=== PATIENT | female | born 1990 | race African-American/Black ===

== ENCOUNTER 2020-07-13 06:57 | Outpatient (NON) | payer BC, SELFPAY ==
[2020-07-14 18:06] LABS: SARS-CoV-2 RNA PCR Negative
== END 2020-07-13 06:58 ==
LOC: ANHCOVIDDT 07:04
PROVIDERS: Visit Provider Registered Nurse
DX: J02.9 Acute pharyngitis, unspecified (principal); R50.9 Fever, unspecified; Z20.828 Contact with and (suspected) exposure to other viral communicable diseases
CPT/HCPCS: 87635; C9803; U0003